=== PATIENT | female | born 1975 | race African-American/Black ===

== ENCOUNTER 2017-01-28 14:21 | Emergency (ER) | payer SELFPAY ==
[2017-01-28] MEDS ORDERED: Ondansetron INJ* 2 MG/ML VIAL IV ONE (14:22)
--- NOTE | 2017-01-28 14:29 | UC ---
Abdominal Pain Female HPI - HPI Summary HPI Summary: SUDDEN ONSET OF RLQ PAIN AND NAUSEA ABOUT 1 HR [facility]. NO FEVER. STILL HAS AN APPENDIX. DENIES URINARY SX. - History of Current Complaint Stated Complaint: ABD PAIN Time Seen by Provider: 01/28/17 14:21 Hx Obtained From: Patient Onset/Duration: Sudden Onset, Lasting Hours, Still Present Timing: Constant Severity Initially: Severe Severity Currently: Severe Pain Intensity: 10 Pain Scale Used: 0-10 Numeric Location: Discrete At: RLQ Radiates: Yes Radiates to: Inguinal Character: Sharp Aggravating Factor(s): Nothing Alleviating Factor(s): Nothing Associated Signs and Symptoms: Positive: Nausea. Negative: Fever, Back Pain, Blood in Stool, Urinary Symptoms, Vaginal Discharge Allergies/Adverse Reactions: Allergies Allergy/AdvReac Type Severity Reaction Status Date / Time No Known Allergies Allergy Verified 01/28/17 14:27 Home Medications: Home Medications NK [No Home Medications Reported] 01/28/17 [History Confirmed 01/28/17] PMH/Surg Hx/FS Hx/Imm Hx - Additional Past Medical History Additional PMH: ANEMIA - Family History Known Family History: Positive: Hypertension Review of Systems Constitutional: Negative Respiratory: Negative Cardiovascular: Negative Gastrointestinal: Abdominal Pain, Nausea All Other Systems Reviewed And Are Negative: Yes Physical Exam Triage Information Reviewed: Yes Appearance: Well-Nourished, Pain Distress - SEVERE - CRYING, WRITHING Vital Signs Reviewed: Yes Eyes: Positive: Conjunctiva Clear ENT: Positive: Hearing grossly normal Neck: Positive: Supple Respiratory Exam: Normal Cardiovascular Exam: Normal Abdomen Description: Positive: Soft, Other: - TTP RLQ, NO RIGIDITY. POSITIVE OBTURATOR AND PSOAS SIGN. PAIN WITH PERCUSSION. Negative: Distended Musculoskeletal: Positive: No Edema Neurological: Positive: Alert Psychological: Positive: Other: - SEVERE PAIN RESPONSE Skin: Negative: rashes Abd Pain Female Course/Dx - Course Course Of Treatment: PIV PLACED, NS INFUSING. 4MG ZOFRAN AND 2MG MORPHINE GIVEN. [place] [facility] [place]. - Differential Dx/Diagnosis Provider Diagnoses: RLQ PAIN - R/O APPY - Physician Notification/Consults Discussed Care of Patient With: Quintin Escamilla - [place] [facility] [place] [facility] Time Discussed With Above Provider: 14:30 Instructed by Provider To: MD Will See In ED Discharge - Discharge Plan Condition: Stable Disposition: TRANS HIGHER LVL OF CARE FAC Referrals: No Primary Care Phys,NOPCP [Primary Care Provider] -
[2017-01-28] MEDS ORDERED: NS 0.9% 1000 ML* 1,000 ML IV SCH (14:30)
[2017-01-28] MEDS ORDERED: Morphine INJ* 2 MG/ML 1 ML CARPUJECT IV ONE (14:32)
[2017-01-28] MEDS ORDERED: Morphine INJ* 2 MG/ML 1 ML SYRINGE (TWO MG - NEW SYRINGE VERSION) ONE (14:34)
== END 2017-01-28 14:40 | disposition short-term general hospital (02) ==
LOC: UCEAST 14:21
DX: R10.31 Right lower quadrant pain (principal); Z86.2 Personal history of diseases of the blood and blood-forming organs and certain disorders involving the immune mechanism
CPT/HCPCS: 96360; 96374; 96375; 99203; G0463; J2270; J2405

== ENCOUNTER → 2017-01-28 14:58 | Emergency (ER) | payer SELFPAY ==
[~2017-01-28 14:58] MED LIST: Benzonatate CAP* 100 MG PO ONE; HYDROmorphone INJ* 1 MG/ML CARPUJECT SYRINGE IV ONE; Ketorolac INJ* 30 MG/ML 1 ML VIAL IV ONE; NS 0.9% 1000 ML* 2,000 ML IV ONE; Ondansetron INJ* 2 MG/ML VIAL IV ONE; oxyCODONE/Acetamin 5/325 MG* TAB PO ONE
[2017-01-28 15:40] LABS: Hematocrit 28 % (35-47); Hemoglobin 8.5 g/dl (12.0-16.0); Mean Corpuscular HGB Conc 30 g/dl (31-36); Mean Corpuscular Hemoglobin 20 pg (27-31); Mean Corpuscular Volume 67 fL (80-97); Mean Platelet Volume 8 um3 (7.4-10.4); Red Blood Count 4.17 10^6/ul (4.0-5.4); Red Cell Distribution Width 20 % (10.5-15); White Blood Count 6.5 10^3/ul (3.5-10.8)
[2017-01-28 15:42] LABS: Add Diff/Slide Review? Slide Review Added; Comments Flag Yes
[2017-01-28 16:08] LABS: Microcytosis 2+; Target Cells 1+
[2017-01-28 16:09] LABS: Add Path Review? YES
--- NOTE | 2017-01-28 16:09 | RAD ---
INDICATION: Right flank pain COMPARISON: None TECHNIQUE: Noncontrast axial source images were acquired from the level hemidiaphragms to the symphysis pubis as part of CT imaging for renal stone. Lung bases: The lung bases are clear. Liver: The liver is normal in size. Noncontrast imaging shows no evidence of a hepatic mass or ductal dilatation. Gallbladder: There are no calcified gallstones. There is no evidence of wall thickening or pericholecystic fluid.. Spleen: The spleen is normal in size. The noncontrast CT appearance is normal. Pancreas: Noncontrast imaging shows no pancreatic mass or ductal dilitation. Adrenal glands: No masses are identified. Kidneys/Bladder: There is no evidence of nephrolithiasis or CT evidence of hydronephrosis. Noncontrast imaging shows no evidence of a renal mass. The bladder is unremarkable.. There is a calcification the minor pelvis and right but this believed to present a phleboliths. Adenopathy: There is no evidence of intraperitoneal or retroperitoneal adenopathy. Evaluation is limited without oral contrast. Fluid collections: There are no free or localized fluid collections. Vessels: The aorta and iliac vessels are normal in caliber. There are no significant atherosclerotic changes. The IVC appears normal Pelvic organs: The uterus and left adnexa are unremarkable. There is a probable right adnexal cyst versus a bladder diverticulum GI tract: Evaluation of the bowel is limited without oral contrast. The stomach, small bowel, and lower GI tract appear grossly normal. There are no obstructive findings. The appendix is visualized and appears normal. Soft tissues: No soft tissue abnormalities of the extraperitoneal abdomen or pelvis are identified. Osseous structures: There are no acute osseous findings. IMPRESSION: 1. No CT evidence of urolithiasis. 2. Normal appendix. 3. Right adnexal cyst versus bladder diverticulum.
[2017-01-28 16:19] LABS: ALT 12 U/L (7-52); AST 15 U/L (13-39); Albumin 4.1 g/dL (3.2-5.2); Alkaline Phosphatase 57 U/L (34-104); Anion Gap 7 mmol/L (2-11); BUN/Creatinine Ratio 18.8 (8-20); Blood Urea Nitrogen 13 mg/dL (6-24); C Reactive Protein 9.93 mg/L (< 5.00); CO2 Carbon Dioxide 27 mmol/L (22-32); Calcium 8.9 mg/dL (8.6-10.3); Chloride 104 mmol/L (101-111); EGFR African American 121.2 (>60); EGFR Non-African American 94.2 (>60); Globulin 3.2 g/dL (2-4); Glucose 102 mg/dL (70-100); Lipase 26 U/L (11.0-82.0); Potassium 3.3 mmol/L (3.5-5.0); Sodium 138 mmol/L (133-145); Total Protein 7.3 g/dL (6.4-8.9)
[2017-01-28 17:35] LABS: Urine Bacteria Absent (Absent); Urine Bilirubin Negative (Negative); Urine Glucose Negative (Negative); Urine Nitrite Negative (Negative)
--- NOTE | 2017-01-28 17:49 | RAD ---
INDICATION: Right flank pain COMPARISON: Renal stone CT same date TECHNIQUE: Longitudinal and transverse transabdominal scans of the pelvis were obtained. FINDINGS: Uterus: The uterus is mildly enlarged measuring 10.7 x 5.5 x 7.2 cm. There is a 2.2 x 2.0 x 1.9 cm posterior body fibroid. Endometrial thickness: The endometrium is mildly thickened with a echogenic focus measuring 1.8 x 0.9 x 1.5 cm which is likely an endometrial polyp. Free fluid: There is no significant free fluid . Ovaries: The ovaries are normal in size. The right ovary measures 7.8 x 4.0 x 5.6 cm. The left ovary measures 3.3 x 2.9 x 3.8 cm. There is a dominant 3.5 x 3.2 x 3.3 cm right ovarian cyst. There are multiple small left-sided follicles. Doppler interrogation demonstrates flow to each ovary. Other: None IMPRESSION: 1. Fibroid uterus. 2. Endometrial polyp. 3. 3.5 cm right ovarian cyst
--- NOTE | 2017-01-28 19:47 | ED ---
Lizette Torres Julia, scribed for Quintin Escamilla MD on 01/28/17 at 1618 . Abdominal Pain/Female - HPI Summary HPI Summary: This patient is a 41 year old F presenting to [facility] with a chief complaint of sudden R flank and RLQ pain radiating to leg and groin since 13:00 today. The patient rates the pain 10/10 in severity. Symptoms aggravated by nothing. Symptoms alleviated by nothing. Patient reports urinary retention. - History of Current Complaint Chief Complaint: EDAbdPain Stated Complaint: ABD PAIN FROM CC Time Seen by Provider: 01/28/17 15:18 Hx Obtained From: Patient Hx Last Menstrual Period: 01/09/2017 Onset/Duration: Sudden Onset Severity Currently: Severe Pain Intensity: 10 Pain Scale Used: 0-10 Numeric Location: Discrete At: RLQ, Flank - R Radiates to: Other - leg and groin Aggravating Factor(s): Nothing Alleviating Factor(s): Nothing Associated Signs and Symptoms: Positive: Other: - urinary retention Allergies/Adverse Reactions: Allergies Allergy/AdvReac Type Severity Reaction Status Date / Time No Known Allergies Allergy Verified 01/28/17 14:27 PMH/Surg Hx/FS Hx/Imm Hx History: Reports: Other Problems/Disorders - ovarian cysts Denies: Hx Kidney Stones Sensory History: Denies: Hx Deafness Infectious Disease History: No Infectious Disease History: Denies: Traveled Outside the [place] in Last 30 Days - Family History Known Family History: Positive: Hypertension - Social History Alcohol Use: None Hx Substance Use: No Substance Use Type: Reports: None Hx Tobacco Use: No Smoking Status (MU): Never Smoked Tobacco Review of Systems Negative: Fever Positive: other - urinary retention Positive: Other - R Flank and RLQ pain All Other Systems Reviewed And Are Negative: Yes Physical Exam - Summary Physical Exam Summary: General: moderate to severe distress Skin: warm, color reflects adequate perfusion, dry Head: normal Eyes: EOMI, DANIELE ENT: normal Neck: supple, nontender Respiratory: CTA, breath sounds present Cardiovascular: RRR Abdomen: soft, nontender, mild RLQ tenderness Bowel: hypoactive bowel sounds Musculoskeletal: normal, strength/ROM intact Neurological: normal, sensory/motor intact, A&O x3 Psychological: affect/mood appropriate Triage Information Reviewed: Yes Vital Signs On Initial Exam: Initial Vitals Temp Pulse Resp BP Pulse Ox 98.1 F 64 18 109/57 100 01/28/17 14:59 01/28/17 14:59 01/28/17 14:59 01/28/17 14:59 01/28/17 14:59 Vital Signs Reviewed: Yes Diagnostics - Vital Signs Vital Signs Temp Pulse Resp BP Pulse Ox 01/28/17 15:34 33 96 01/28/17 15:32 117/73 01/28/17 15:24 14 01/28/17 14:59 98.1 F 64 18 109/57 100 - Laboratory Lab Results: Lab Results 01/28/17 01/28/17 01/28/17 Range/Units 14:30 14:30 14:30 WBC 6.5 (3.5-10.8) 10^3/ul RBC 4.17 (4.0-5.4) 10^6/ul Hgb 8.5 L (12.0-16.0) g/dl Hct 28 L (35-47) % MCV 67 L (80-97) fL MCH 20 L (27-31) pg MCHC 30 L (31-36) g/dl RDW 20 H (10.5-15) % Plt Count 268 (150-450) 10^3/ul MPV 8 (7.4-10.4) um3 Neut % (Auto) 40.6 (38-83) % Lymph % (Auto) 48.0 H (25-47) % [place] % (Auto) 8.9 (1-9) % Eos % (Auto) 1.9 (0-6) % Baso % (Auto) 0.6 (0-2) % Absolute Neuts (auto) 2.6 (1.5-7.7) 10^3/ul Absolute Lymphs (auto) 3.1 (1.0-4.8) 10^3/ul Absolute Monos (auto) 0.6 (0-0.8) 10^3/ul Absolute Eos (auto) 0.1 (0-0.6) 10^3/ul Absolute Basos (auto) 0 (0-0.2) 10^3/ul Absolute Nucleated RBC 0.01 10^3/ul Nucleated RBC % 0.2 Microcytosis 2+ Target Cells 1+ Hem Pathologist Commnt Pending INR (Anticoag Therapy) 0.96 (0.77-1.02) APTT 28.0 (26.0-36.3) seconds Sodium Pending Potassium Pending Chloride Pending Carbon Dioxide Pending Anion Gap Pending BUN Pending Creatinine Pending Est GFR ( Amer) Pending Est GFR (Non-Af Amer) Pending BUN/Creatinine Ratio Pending Glucose Pending Calcium Pending Total Bilirubin Pending AST Pending ALT Pending Alkaline Phosphatase Pending C-Reactive Protein Pending Total Protein Pending Albumin Pending Globulin Pending Albumin/Globulin Ratio Pending Lipase Pending Beta HCG, Quant < 0.60 mIU/mL Result Diagrams: 01/28/17 14:30 01/28/17 14:30 Lab Statement: Any lab studies that have been ordered have been reviewed, and results considered in the medical decision making process. - CT A/P CT CT Interpretation Completed By: Radiologist - 1. No CT evidence of urolithiasis. 2. Normal appendix. 3. Right adnexal cyst versus bladder diverticulum. ED Physician has reviewed this report. - Additional Comments Diagnostic Additional Comments: Transvaginal US reveals 1. Fibroid uterus. 2. Endometrial polyp. 3. 3.5 cm right ovarian cyst. ED Physician has reviewed this report. Abdominal Pain Fem Course/Dx - Course Course Of Treatment: DISCUSSED RESULTS WITH PATIENT/FAMILY. DECREASED PAIN WITH PAIN MEDICATIONS. DISCUSSED D/C HOME WITH PAIN/ANTIEMETIC RX AND PMD F/U VERSES ADMISSION FOR PAIN CONTROL. AT THIS TIME, THE PATIENT PREFERS D/C HOME; WILL RETURN IF WORSE. - Diagnoses Provider Diagnoses: Abdominal pain Discharge - Discharge Plan Condition: Stable Disposition: HOME Prescriptions: Ondansetron ODT TAB* [Zofran 4 MG Odt TAB*] 4 mg PO Q6H PRN #10 tab.odt PRN Reason: Nausea oxyCODONE/Acetamin 5/325 MG* [Percocet 5/325 TAB*] 1 tab PO Q4H PRN #20 tab MDD 6 PRN Reason: Pain Patient Education Materials: Abdominal Pain (ED), Ovarian Cyst (ED) Forms: *Work Release Referrals: [facility] [Provider Group] Non Staff,Doctor [Primary Care Provider] - Additional Instructions: FOLLOW UP WITH YOUR DOCTOR. CALL TOMORROW IN THE AM FOR FOLLOW UP. RETURN TO THE EMERGENCY DEPARTMENT FOR ANY WORSENING OF YOUR CONDITION; PAIN, FEVER, VOMITING, YOU FEEL ILL, YOU FEEL LIKE PASSING OUT OR QUESTIONS OR CONCERNS. The documentation as recorded by the Lizette saeed Julia accurately reflects the service I personally performed and the decisions made by me, Quintin Escamilla MD.
== END | disposition home or self-care (01) ==
LOC: ED 14:58
DX: R10.31 Right lower quadrant pain (principal); R33.9 Retention of urine, unspecified
CPT/HCPCS: 36415; 74176; 76830; 80053; 81003; 81015; 83605; 83690; 84702; 85025; 85060; 85610; 85730; 86140; 96374; 96375; 96376; 99283; A9270-GY; J1170; J1885; J2405

== ENCOUNTER 2018-04-29 11:30 | Emergency (ER) | payer SELFPAY ==
--- NOTE | 2018-04-29 12:06 | ED ---
Throat Pain/Nasal Congestion - HPI Summary HPI Summary: Patient is a 43 y/o female who presents to the ED c/o dental pain. For the past 3 weeks shes had dental pain of her right upper second molar. Patient rates her pain as a 10/10 in severity and has sleep disturbance due to pain. She denies any fever. She has made an appointment with [facility], however she was not able to get in until next month. Patient is a smoker. - History of Current Complaint Chief Complaint: EDDentalPain Time Seen by Provider: 04/29/18 11:58 Hx Obtained From: Patient Onset/Duration: Lasting Weeks - 3, Still Present Severity: Severe - 10/10 Associated Signs And Symptoms: Positive: Negative Cough: None Related History: Smoking - Allergies/Home Medications Allergies/Adverse Reactions: Allergies Allergy/AdvReac Type Severity Reaction Status Date / Time No Known Allergies Allergy Verified 04/29/18 11:42 PMH/Surg Hx/FS Hx/Imm Hx Endocrine/Hematology History: Reports: Hx Anemia History: Reports: Other Problems/Disorders - ovarian cysts Denies: Hx Kidney Stones Sensory History: Denies: Hx Deafness Infectious Disease History: No Infectious Disease History: Denies: Traveled Outside the [place] in Last 30 Days - Family History Known Family History: Positive: Hypertension, Diabetes, Other - lung CA - Social History Alcohol Use: None Hx Substance Use: No Substance Use Type: Reports: None Hx Tobacco Use: Yes Smoking Status (MU): Current Every Day Smoker Review of Systems Negative: Fever Positive: Dental Pain - right upper molar All Other Systems Reviewed And Are Negative: Yes Physical Exam - Summary Physical Exam Summary: Appearance: Well appearing, no pain distress Skin: warm, dry, reflects adequate perfusion Head/face: normal Eyes: EOMI, DANIELE ENT: mucous membranes moist, filling in upper right second molar, adjacent tenderness, no adjacent gingival edema Neck: supple, non-tender Respiratory: CTA, breath sounds present Cardiovascular: RRR, pulses symmetrical Abdomen: non-tender, soft Bowel Sounds: present Musculoskeletal: normal, strength/ROM intact Neuro: normal, sensory motor intact, A&Ox3 Triage Information Reviewed: Yes Vital Signs On Initial Exam: Initial Vitals Temp Pulse Resp BP Pulse Ox 98.3 F 78 16 152/97 100 04/29/18 11:42 04/29/18 11:42 04/29/18 11:42 04/29/18 11:42 04/29/18 11:42 Vital Signs Reviewed: Yes Procedures - Procedure Summary Procedure Summary: Dental block done for pain: A supraperiosteal nerve block was performed with 1 cc of 0.5% bupivacaine with epinephrine on the right upper second molar. This improved pain the patient would not allow the greater palatine block to be performed. She tolerated this well without complication. Diagnostics - Vital Signs Vital Signs Temp Pulse Resp BP Pulse Ox 04/29/18 11:42 98.3 F 78 16 152/97 100 - Laboratory Lab Statement: Any lab studies that have been ordered have been reviewed, and results considered in the medical decision making process. EENT Course/Dx - Course Course Of Treatment: Nurse's notes reviewed. Patient with widespread dental decay and multiple fillings presents with dental pain of chronic nature. A partial dental block was performed with improvement. She was started on Naprosyn and clindamycin due to penicillin allergy. She will follow up with primary care physician. - Differential Diagnoses Differential Diagnoses: Other - Dental caries, dental abscess, chronic dental pain - Diagnoses Provider Diagnoses: Pain, dental Discharge - Sign-Out/Discharge Documenting (check all that apply): Patient Departure - Discharge Patient Received Moderate/Deep Sedation with Procedure: No - Discharge Plan Condition: Improved Disposition: HOME Prescriptions: Chlorhexidine Gluconate [Periogard] 10 ml .SEE ORDER TID #1 bottle Clindamycin Cap(NF) [Clindamycin Cap 300 mg Cap(NF)] 300 mg PO TID #30 cap Naproxen [Naproxen 500 mg tab] 500 mg PO BID PRN #14 tablet PRN Reason: Pain Patient Education Materials: Toothache (ED) Referrals: No Primary Care Phys,NOPCP [Primary Care Provider] - Additional Instructions: Follow-up with [facility] dental as scheduled. Tylenol and prescribed medication for pain. Take antibiotic. Return if worse, facial swelling, and new symptoms or other concerns. - Billing Disposition and Condition Condition: IMPROVED Disposition: Home - Attestation Statements Document Initiated by Scribe: Yes Documenting Scribe: Tamanna Au Provider For Whom Scribe is Documenting (Include Credential): Andres Bertrand MD Scribe Attestation: Tamanna Torres, scribed for Andres Bertrand MD on 04/29/18 at 2019. Scribe Documentation Reviewed: Yes Provider Attestation: The documentation as recorded by the scribe, Tamanna Au accurately reflects the service I personally performed and the decisions made by me, Andres Bertrand MD Status of Scribe Document: Viewed
[2018-04-29] MEDS ORDERED: Bupivacaine 0.5% W/EPI SDV* 30 ML VIAL INJ ONE (12:08)
[2018-04-29 12:48] VITALS: BP 121/84
== END 2018-04-29 12:47 | disposition home or self-care (01) ==
LOC: ED 11:30
DX: K08.89 Other specified disorders of teeth and supporting structures (principal); F17.200 Nicotine dependence, unspecified, uncomplicated
CPT/HCPCS: 99282

== ENCOUNTER 2018-05-03 04:15 | Emergency (ER) | payer SELFPAY ==
[2018-05-03] MEDS ORDERED: Ketorolac INJ* 30 MG/ML 1 ML VIAL IM ONE (04:39)
[2018-05-03] MEDS ORDERED: oxyCODONE/Acetamin 5/325 MG* TAB PO ONE (04:41)
--- NOTE | 2018-05-03 04:42 | ED ---
Throat Pain/Nasal Congestion - HPI Summary HPI Summary: This patient is a 43 year old F brought in by ambulance to [facility] with a chief complaint of right upper tooth pain that began 3 days ago. The patient rates the pain 10/10 in severity. Symptoms aggravated by nothing. Symptoms alleviated by nothing. Patient denies fever. - History of Current Complaint Chief Complaint: EDDentalPain Time Seen by Provider: 05/03/18 04:35 Hx Obtained From: Patient Onset/Duration: Sudden Onset, Lasting Days, Still Present Severity: Severe - Allergies/Home Medications Allergies/Adverse Reactions: Allergies Allergy/AdvReac Type Severity Reaction Status Date / Time No Known Allergies Allergy Verified 04/29/18 11:42 PMH/Surg Hx/FS Hx/Imm Hx Previously Healthy: No Endocrine/Hematology History: Reports: Hx Anemia History: Reports: Other Problems/Disorders - ovarian cysts Denies: Hx Kidney Stones Sensory History: Denies: Hx Deafness Infectious Disease History: No Infectious Disease History: Denies: Traveled Outside the [place] in Last 30 Days - Family History Known Family History: Positive: Hypertension, Diabetes, Other - lung CA - Social History Occupation: Employed Full-time Lives: Alone Alcohol Use: None Hx Substance Use: No Substance Use Type: Reports: None Hx Tobacco Use: Yes Smoking Status (MU): Current Every Day Smoker Review of Systems Negative: Fever Positive: Dental Pain All Other Systems Reviewed And Are Negative: Yes Physical Exam - Summary Physical Exam Summary: VITAL SIGNS: Reviewed. GENERAL: Patient is a well-developed and nourished female who is lying comfortable in the stretcher. Patient is not in any acute respiratory distress. HEAD AND FACE: No signs of trauma. No ecchymosis, hematomas or skull depressions. No sinus tenderness. EYES: PERRLA, EOMI x 2, No injected conjunctiva, no nystagmus. EARS: Hearing grossly intact. Ear canals and tympanic membranes are within normal limits. MOUTH: Oropharynx within normal limits. Decay of the last upper right molar NECK: Supple, trachea is midline, no adenopathy, no JVD, no carotid bruit, no c- spine tenderness, neck with full ROM. CHEST: Symmetric, no tenderness at palpation LUNGS: Clear to auscultation bilaterally. No wheezing or crackles. CVS: Regular rate and rhythm, S1 and S2 present, no murmurs or gallops appreciated. ABDOMEN: Soft, non-tender. No signs of distention. No rebound no guarding, and no masses palpated. Bowel sounds are normal. EXTREMITIES: FROM in all major joints, no edema, no cyanosis or clubbing. NEURO: Alert and oriented x 3. No acute neurological deficits. Speech is normal and follows commands. SKIN: Dry and warm Triage Information Reviewed: Yes Vital Signs On Initial Exam: Initial Vitals Temp Pulse Resp BP Pulse Ox 97.7 F 83 16 104/90 99 05/03/18 04:19 05/03/18 04:19 05/03/18 04:19 05/03/18 04:19 05/03/18 04:19 Vital Signs Reviewed: Yes Diagnostics - Vital Signs Vital Signs Temp Pulse Resp BP Pulse Ox 05/03/18 04:19 97.7 F 83 16 104/90 99 - Laboratory Lab Statement: Any lab studies that have been ordered have been reviewed, and results considered in the medical decision making process. EENT Course/Dx - Course Course Of Treatment: This patient is a 43 year old F brought in by ambulance to [facility] with a chief complaint of right upper tooth pain that began 3 days ago. Physical Exam Findings: Decay of the last upper right molar. In the ED course the patient was given Toradol and Percocet. Patient will be discharged with prescription for Percocet and follow up from PCP. The patient is agreeable with this plan. - Diagnoses Provider Diagnoses: Tooth ache Discharge - Sign-Out/Discharge Documenting (check all that apply): Patient Departure - Discharge home Patient Received Moderate/Deep Sedation with Procedure: No - Discharge Plan Condition: Stable Disposition: HOME Prescriptions: oxyCODONE/Acetamin 5/325 MG* [Percocet 5/325 TAB*] 1 tab PO Q6H PRN #10 tab MDD 4 PRN Reason: Pain Patient Education Materials: Toothache (ED) Referrals: [facility] [place] PH[facility]ICIAN REFERRAL [Outside] - 1 Day Additional Instructions: RETURN TO THE EMERGENCY DEPARTMENT FOR NEW OR WORSENING SYMPTOMS - Attestation Statements Document Initiated by Scribe: Yes Documenting Scribe: Kusum Stafford Provider For Whom Scribe is Documenting (Include Credential): Dr. Teresa Lima MD Scribe Attestation: Kusum Torres, scribed for Dr. Teresa Lima MD on 05/03/18 at 0533. Status of Scribe Document: Ready
[2018-05-03 06:02] VITALS: BP 116/78
== END 2018-05-03 05:49 | disposition home or self-care (01) ==
LOC: ED 04:15
DX: K08.89 Other specified disorders of teeth and supporting structures (principal); K02.9 Dental caries, unspecified; F17.200 Nicotine dependence, unspecified, uncomplicated
CPT/HCPCS: 96372; 99282; A9270-GY; J1885

== ENCOUNTER 2023-10-06 11:47 | Observation (INO) ==
[2023-10-06 12:49] LABS: Hematocrit 20.2 % (35-45); Hemoglobin 5.4 g/dL (11.5-14.3); Mean Corpuscular Hemoglobin 14.2 pg (27-33); Mean Corpuscular Volume 52.7 fL (80-97); Mean Platelet Volume 8.3 fL (7.5-11.2); Platelet Count 428 10^3/uL (150-450); Red Blood Count 3.83 10^6/uL (3.63-4.92); Red Cell Distribution Width 22.1 % (12-17); White Blood Count 13.2 10^3/uL (3.8-11.8)
[2023-10-06 12:52] LABS: High Sens Troponin Baseline < 3 pg/mL (<15)
[2023-10-06 12:56] LABS: INR 1.13 (0.85-1.14)
[2023-10-06 13:14] LABS: ALT 11 U/L (7-52); AST 13 U/L (13-39); Albumin 4.5 g/dL (3.2-5.2); Albumin/Globulin Ratio 1.3 (1-3); Alkaline Phosphatase 67 U/L (35-149); Anion Gap 14 mmol/L (2-16); Blood Urea Nitrogen 14 mg/dL (6-24); C Reactive Protein 12.45 mg/L (<8.01); CO2 Carbon Dioxide 22 mmol/L (22-32); Calcium 9.3 mg/dL (8.6-10.3); Chloride 100 mmol/L (101-111); Creatinine, Serum 0.84 mg/dL (0.51-0.95); Globulin 3.4 g/dL (2-4); Glucose 83 mg/dL (70-100); Sodium 136 mmol/L (135-145); Total Bilirubin 0.5 mg/dL (0.2-1.0); Total Protein 7.9 g/dL (6.4-8.9); eGFR CKD-EPI 86.2 (>60)
[2023-10-06 13:15] LABS: HCG Pregnancy < 0.60 mIU/mL
[2023-10-06 13:55] LABS: High Sensitivity Troponin 1 Hr < 3 pg/mL (<15)
[2023-10-06 14:43] LABS: ABS Basophils 0.1 10^3/ul (0.0-0.1); ABS Eosinophils 0.1 10^3/ul (0.0-0.5); ABS Lymphocytes 2.2 10^3/ul (1.0-4.8); ABS Monocytes 0.8 10^3/ul (0.0-0.9); ABS Neutrophils 9.9 10^3/ul (1.5-7.6); Hypochromasia 3+; Microcytosis 3+
[2023-10-06 19:25] LABS: % Iron Saturation 3 % (15-55); .Transferrin 445 mg/dL (203-362); Iron < 20 ug/dL (50-212); Total Iron Binding Capacity 623 mcg/dL (250-450); Unsaturated Iron Binding 603 ug/dL
[2023-10-06 19:36] LABS: Urine Appearance Clear; Urine Bilirubin Negative (Negative); Urine Blood Trace (Negative); Urine Color Light-Yellow; Urine Glucose Negative (Negative); Urine Ketones Negative (Negative); Urine Nitrite Negative (Negative); Urine Protein Negative (Negative); Urine Specific Gravity 1.022 (1.002-1.030); Urine Urobilinogen Negative (Negative)
[2023-10-06 19:40] LABS: TSH Ultra Thyroid Stim Horm 1.05 mcIU/mL (0.34-5.60)
[2023-10-06 19:47] LABS: Ferritin 2.2 ng/mL (11-307)
[2023-10-06 19:51] LABS: Folate 19.66 ng/mL (5.90-24.80)
[2023-10-06 19:52] LABS: Vitamin B12 439 pg/mL (180-914)
[2023-10-06 22:54] LABS: Hemoglobin 6.7 g/dL (11.5-14.3)
[2023-10-07 06:17] LABS: Hemoglobin 7.9 g/dL (11.5-14.3); Mean Corpuscular Hemoglobin 18.6 pg (27-33); Mean Corpuscular Hgb Conc 30.2 g/dL (31-36); Mean Corpuscular Volume 61.4 fL (80-97); Mean Platelet Volume 8.6 fL (7.5-11.2); Platelet Count 330 10^3/uL (150-450); Red Blood Count 4.23 10^6/uL (3.63-4.92); Red Cell Distribution Width 33.8 % (12-17); White Blood Count 7.7 10^3/uL (3.8-11.8)
[2023-10-07] MEDS: Ferric Gluconate IV 250 MG in NS 0.9% 250 ml 200 ML IVPB SCH (11:55)
[2023-10-07] MEDS: Albuterol/Ipratropium NEB.SOL (2.5/0.5 MG) 3 ML NEB.SOLN INH SCH (19:12)
[2023-10-07 19:32] LABS: ABS Nucleated RBC 0.01 10^3/ul; Hematocrit 26.1 % (35-45); Hemoglobin 7.9 g/dL (11.5-14.3); Mean Corpuscular Hemoglobin 18.6 pg (27-33); Mean Corpuscular Hgb Conc 30.5 g/dL (31-36); Mean Platelet Volume 8.5 fL (7.5-11.2); Nucleated Red Blood Cells % 0.1 %/100WBC (0.0-0.8); Platelet Count 324 10^3/uL (150-450); Red Blood Count 4.27 10^6/uL (3.63-4.92); Red Cell Distribution Width 32.9 % (12-17)
[2023-10-07] MEDS ORDERED: Amoxicillin/Clavul 875/125 TAB (Augmentin 875 tab) PO SCH (21:00)
[2023-10-07 22:38] LABS: Hypochromasia 2+
[2023-10-07 22:39] LABS: Anisocytosis 3+; Microcytosis 3+; Target Cells 1+
[2023-10-07 23:54] LABS: Rapid Strep Molecular Negative (Negative)
[2023-10-08 08:40] LABS: Hematocrit 28.6 % (35-45); Hemoglobin 8.5 g/dL (11.5-14.3); Mean Corpuscular Hemoglobin 18.4 pg (27-33); Mean Corpuscular Hgb Conc 29.8 g/dL (31-36); Mean Corpuscular Volume 61.7 fL (80-97); Red Blood Count 4.63 10^6/uL (3.63-4.92); Red Cell Distribution Width 32.3 % (12-17); White Blood Count 9.7 10^3/uL (3.8-11.8)
[2023-10-08 09:25] LABS: Mean Platelet Volume 8.5 fL (7.5-11.2); Platelet Count 321 10^3/uL (150-450)
[2023-10-08 09:26] LABS: Anisocytosis 2+; Hypochromasia 2+; Microcytosis 3+; Polychromasia 1+; Tear Drop Cells 1+
[2023-10-08 09:27] LABS: ABS Eosinophils 0.6 10^3/ul (0.0-0.5); ABS Lymphocytes 2.8 10^3/ul (1.0-4.8); ABS Monocytes 0.9 10^3/ul (0.0-0.9); ABS Neutrophils 5.4 10^3/ul (1.5-7.6)
[2023-10-08 10:29] VITALS: BP 118/71
== END 2023-10-08 14:30 | disposition home or self-care (01) ==
LOC: ED 11:47 → SUATTDRO 16:40 → INTOOBSV 16:40 → EDHOLD 16:40 → MEDTELE 19:59
PROVIDERS: ADMIT Internal Medicine; ATTEND Internal Medicine